=== PATIENT | male | born 1975 | race Caucasian/White ===

== ENCOUNTER 2020-09-11 14:17 | Emergency (ER) | payer OTHER, SELFPAY ==
[2020-09-11 14:26] VITALS: BP 129/77; PULSE 77; RESP 20; TEMP 36.4; O2SAT 97; BMI 28.0
--- NOTE | 2020-09-11 14:33 | ED.BACK ---
HPI - Back Pain/Injury General Chief Complaint: Back Pain/Injury Stated Complaint: back pain Time Seen by Provider: 09/11/20 14:25 Source: patient Mode of arrival: ambulatory Limitations: no limitations History of Present Illness HPI Narrative: 44-year-old male with a past medical history of chronic back pain presenting to the ED with complaints of acute on chronic lower back pain for the past few days worse today. Denies any injuries. Denies any additional complaints or concerns at this time. Reports is similar to his prior episodes of back pain. Related Data Previous Rx's Medication Instructions Recorded ibuprofen 800 mg PO Q8H PRN #14 tab 09/11/20 oxycodone-acetaminophen [Percocet] 1 tab PO Q6H PRN #10 tab 09/11/20 prednisone 40 mg PO DAILY 5 Days #10 tab 09/11/20 Allergies Allergy/AdvReac Type Severity Reaction Status Date / Time No Known Allergies Allergy Unknown NOT Unverified 07/10/20 14:59 APPLICABLE Review of Systems Review of Systems: Constitutional : No trauma, No Weight loss, No Fever, No Chills, ENT/Mouth : No Hearing loss, No Ear Pain, No Nasal Congestion, No Sinus Pain, No Hoarseness, No sore throat, No Rhinorrhea, No Swallowing Difficulty Cardiovascular : No Chest Pain, No SOB Respiratory : No Cough, No Dyspnea Gastrointestinal : No Nausea, No Vomiting, No Diarrhea, No abdominal Pain, No Hematochezia, No Melena Genitourinary : No Dysuria, No Urinary Frequency, No Hematuria, No Urinary or Bowel Incontinence/retention Musculoskeletal : + Back pain, No neck pain, No joint stiffness, No joint swelling Skin : No Skin Lesions, No rash or signs of infection Neuro : No Weakness, No radiation, No Numbness, No Paresthesias, No headache, no loss of bowel or bladder incontinence, no saddle anesthesia Denies history of IV drug usage. Yes all other systems are reviewed and are negative PMFSH Past Medical History Attestation statement: The following information was validated with the patient. Medical History No known health problems Social History Social History Advance Directives: No Advance Directives Information Provided: No Physical Exam Vital Signs: Vital Signs: Last Vital Signs Temp 97.6 F 09/11/20 14:26 Pulse 77 09/11/20 14:26 Resp 20 09/11/20 14:26 BP 129/77 09/11/20 14:26 Pulse Ox 97 09/11/20 14:26 Body Mass Index 28.0 vital signs have been reviewed as normal and appeared to be correct. Blood pressure normal. Heart rate normal. Respiration rate normal. Temperature normal. Oxygen saturation normal. Appearance: Alert. Oriented X3. No acute distress. Head: Normal external exam. Normocephalic. Atraumatic. No Escobar signs noted. No raccoon eyes noted Eyes: PERRLA. EOMI. Conjunctiva and sclera normal. Eyelids normal. ENT: EAC normal. TM's Normal. Pharynx normal. Uvula midline. Moist mucous membranes. No trismus noted. No drooling noted. No muffled voice noted. Neck: Normal inspection. Neck supple. FROM. No adenopathy. Thyroid Normal. No meningeal signs. No neck mass noted. CVS: Normal heart rate and rhythm. Heart sound normal. No murmurs noted. Pulses normal throughout. Respiratory: No respiratory distress. Painless inspiration. Breath sounds normal. No wheezes/rales/rhonchi noted. Chest nontender. No accessory muscle usage noted or decreased air movement noted. Abdomen: Soft and nontender. Bowel sounds normal in all 4 quadrants. No distention noted. No organomegaly noted. No visible injury noted. Back: No CVA tenderness. Full range of motion noted. No obvious deformities, or edema. Mild para-spinal muscular tenderness from lumbar region to coccyx. Full ROM in back and lower extremities. 5/5 strength hip extension/flexion, abduction, adduction. Mild Lumbar pain with hip flexion against resistance. Straight leg raise test negative on right; Straight leg raise test negative on left; Reflexes normal ankle and knee bilaterally; EHL motor strength normal bilaterally Skin: Skin warm and dry. Normal skin color. Normal skin turgor. No rashes/lesions/lacerations noted. Extremities: No lower extremity edema. Extremities exhibit normal range of motion. Extremities nontender. Neuro: Oriented X 3. No motor deficit. No sensory deficit. Reflexes normal. Course Course Course Narrative: Pt c likely muscular pain, but could be herniated disc. Neuro exam shows no deficits. Not c/w AAA/epidural abscess/dissection.No high risk Hx (Incont, fever, immunosupp, recent surgery/LP, coag, signif trauma, wt loss, puls mass, hx/o Ca, TB, or IVDU) to warrant MRI/CT today. Not c/w Pyelo/UTI/kidney stone/spinal fx. Not cauda equina syndrome. DC c meds and f/u. MDM - Back Pain/Injury Medical Records Attestation: I reviewed the patient's medical records. Discharge Plan Discharge Clinical Impression: Strain of lumbar region Patient Disposition: Home, Self-Care Instructions: Back Pain (ED), Lower Back Exercises (ED) Prescriptions: New ibuprofen 800 mg tablet 800 mg PO Q8H PRN (Reason: pain) Qty: 14 RF: 0 prednisone 20 mg tablet 40 mg PO DAILY 5 Days Qty: 10 RF: 0 oxycodone-acetaminophen [Percocet] 5-325 mg tablet 1 tab PO Q6H PRN (Reason: pain) Qty: 10 RF: 0 Referrals: Physician,Unknown [Primary Care Provider] - 2 days (your pcp) Stand Alone Forms: Work/School Release Print Language: Macedonian
== END 2020-09-11 14:59 | disposition home or self-care (01) ==
LOC: HO.ED 14:37
PROVIDERS: Emergency Provider Emergency Medicine
DX: S39.012A Strain of muscle, fascia and tendon of lower back, initial encounter (principal); M54.6 Pain in thoracic spine; X58.XXXA Exposure to other specified factors, initial encounter; Y93.9 Activity, unspecified; Y92.9 Unspecified place or not applicable; Y99.9 Unspecified external cause status; Z79.899 Other long term (current) drug therapy
CPT/HCPCS: 99283

== ENCOUNTER 2021-05-08 08:16 | Emergency (ER) | payer OTHER, SELFPAY ==
[2021-05-08 08:31] VITALS: BP 132/86; PULSE 84; RESP 16; TEMP 36.4; O2SAT 97; BMI 28.0
--- NOTE | 2021-05-08 09:35 | ED_ITS ---
HPI - Back Pain/Injury General Chief Complaint: Back Pain/Injury Stated Complaint: Major Back Pain Time Seen by Provider: 05/08/21 09:30 Source: patient Mode of arrival: ambulatory Limitations: no limitations History of Present Illness HPI Narrative: Patient is a 45-year-old male with no significant past medical history you presents with low back pain x4 days. 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 He states he has tried ibuprofen and heat at home with no improvement of his pain. He states the back pain starts in his low back goes down his left butt cheek and is a sharp shooting pain. He states when he extends his right leg, he can feel the pain worse in his left side. Patient denies loss of control of bladder or bowels. Denies any history of of injury but does state 8 years ago he had some back problems for which he received a cortisone shot and he has been fine ever since. Related Data Previous Rx's Medication Instructions Recorded ibuprofen 800 mg PO Q8H PRN #14 tab 09/11/20 oxycodone-acetaminophen [Percocet] 1 tab PO Q6H PRN #15 tab 09/11/20 prednisone 40 mg PO DAILY 5 Days #10 tab 09/11/20 naproxen 500 mg PO BID PRN 7 Days tab 05/08/21 prednisone 50 mg PO DAILY 4 Days #4 tab 05/08/21 Allergies Allergy/AdvReac Type Severity Reaction Status Date / Time No Known Allergies Allergy Unknown NOT Unverified 07/10/20 14:59 APPLICABLE Review of Systems Review of Systems: Yes all other systems are reviewed and are negative [facility] Past Medical History Medical History No known health problems Social History Social History Advance Directives: No Advance Directives Information Provided: No Physical Exam Vital Signs: Vital Signs: Last Vital Signs Temp 97.6 F 05/08/21 08:31 Pulse 84 05/08/21 08:31 Resp 16 05/08/21 08:31 BP 132/86 05/08/21 08:31 Pulse Ox 97 05/08/21 08:31 Body Mass Index 28.0 Const: General: cooperative, healthy appearing, comfortable and no acute distress Nutritional Appearance: average body habitus Orientation/consciousness: patient oriented x3 Eyes: General: appearance normal, both eyes and all related structures Resp: Effort & Inspection: normal respiratory effort and able to speak in complete sentences Back/Spine/Pelvis: Back: back tenderness (left lower lumbar) Cervical Spine: cervical ROM normal, No cervical muscular tenderness and No Cervical spine tenderness Thoracic/Lumbar Spine: thoraco-lumbar ROM limited, No thoraco-lumbar spasm, No thoracic spinal tenderness, No lumbar spinal tenderness and straight leg raise positive (right side (pain is on left side)) Pelvis: buttock tenderness on the left Skin: General skin exam: no rashes or lesions noted Neuro: General: patient oriented x3 Course Course Course Narrative: Will give 1st dose of steroid and naproxen in ED then discharge Discharge Plan Discharge Clinical Impression: Lumbar radiculopathy Patient Disposition: Home, Self-Care Instructions: Lumbar Radiculopathy (ED) Additional Instructions: Please take the prednisone for the next 4 days, I have sent a prescription to your pharmacy. I have also prescribed naproxen, please take this medication every 12 hours as needed for pain but do not take it for more than 7-10 days as it will irritate your stomach. Please do not take any other ibuprofen, Aleve, Motrin with this medication because it is a similar type of medication and will be bad for your kidneys. If he need extra pain control, you can add in acetaminophen or Tylenol. I would also use ice to reduce the swelling. If your pain continues, please follow-up with your primary care doctor. If you lose control of her bladder or bowels, please return to the emergency department. Prescriptions: New naproxen 500 mg tablet 500 mg PO BID PRN (Reason: pain) 7 Days RF: 0 prednisone 50 mg tablet 50 mg PO DAILY 4 Days Qty: 4 RF: 0 No Action ibuprofen 800 mg tablet 800 mg PO Q8H PRN (Reason: pain) Qty: 14 RF: 0 prednisone 20 mg tablet 40 mg PO DAILY 5 Days Qty: 10 RF: 0 oxycodone-acetaminophen [Percocet] 5-325 mg tablet 1 tab PO Q6H PRN (Reason: pain) Qty: 15 RF: 0
[2021-05-08] MEDS: predniSONE 10 MG TABLET 50 MG PO (09:53)
[2021-05-08] MEDS: NaPROXEN 500 MG TABLET PO (09:53)
== END 2021-05-08 10:08 | disposition home or self-care (01) ==
PROVIDERS: Emergency Provider Emergency Medicine
DX: M54.16 Radiculopathy, lumbar region (principal)
CPT/HCPCS: 99283

== ENCOUNTER 2021-10-14 15:59 | Emergency (ER) | payer OTHER, SELFPAY | END 2021-10-14 20:40 | disposition left against medical advice (07) | PROVIDERS: Emergency Provider Emergency Medicine | DX: M54.50 Low back pain, unspecified (principal) ==

== ENCOUNTER 2021-10-15 08:02 | Emergency (ER) | payer OTHER, SELFPAY ==
[2021-10-15 08:05] VITALS: BP 141/103; PULSE 80; RESP 19; TEMP 36.6; O2SAT 98; BMI 28.0
--- NOTE | 2021-10-15 08:32 | ED_ITS ---
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 Pain is worse with movement when walking. It is improved with rest and laying flat. He denies any lower extremity weakness, numbness, tingling, urinary incontinence. No fevers. He reports this is similar to his previous back pain where he ?over did it? and usually gets better with medication and time. MD elicited complaint: back pain Pertinent past history: prior back pain Onset (ago): day(s) (3) Timing: constant Severity: moderate Quality: aching and spasming Location: right lower back and left lower back Radiation: right upper leg Exacerbating factors: movement and walking Relieving factors: supine Context: bending Associated symptoms: denies other symptoms Treatments prior to arrival: NSAIDS Work related injury: Yes Related Data Previous Rx's Medication Instructions Recorded ibuprofen 800 mg tablet 800 mg PO Q8H PRN #14 tab 09/11/20 oxycodone-acetaminophen 5 mg-325 1 tab PO Q6H PRN #15 tab 09/11/20 mg tablet (Percocet) prednisone 20 mg tablet 40 mg PO DAILY 5 Days #10 tab 09/11/20 naproxen 500 mg tablet 500 mg PO BID PRN 7 Days tab 05/08/21 prednisone 50 mg tablet 50 mg PO DAILY 4 Days #4 tab 05/08/21 cyclobenzaprine 10 mg tablet 10 mg PO TID PRN #10 tab 10/15/21 hydrocodone 5 mg-acetaminophen 325 1 tab PO Q8H PRN #6 tab 10/15/21 mg tablet ibuprofen 800 mg tablet 800 mg PO Q8H PRN #14 tab 10/15/21 Allergies Allergy/AdvReac Type Severity Reaction Status Date / Time No Known Allergies Allergy Unknown NOT Unverified 07/10/20 14:59 APPLICABLE Review of Systems Review of Systems: Constitutional: No Fever, No Chills Cardiovascular: No Chest Pain, No SOB Gastrointestinal: No Nausea, No Vomiting, No abdominal Pain Genitourinary: No Dysuria, No Urinary Frequency, No Hematuria, No incontinence Musculoskeletal: + joint pain, + Myalgias Skin: No Skin Lesions, No rash Neuro: No Weakness, No Numbness Heme/Lymph: No Bruising, No Lymphadenopathy PMFSH Past Medical History Medical History No known health problems Social History Social History Advance Directives: No Advance Directives Information Provided: No Physical Exam Vital Signs: Vital Signs: Last Vital Signs Temp 98 F 10/15/21 08:05 Pulse 80 10/15/21 08:05 Resp 19 10/15/21 08:05 BP 141/103 H 10/15/21 08:05 Pulse Ox 98 10/15/21 08:05 BMI result Body Mass Index 28.0 Appearance: Alert. Oriented X3. No acute distress. HEENT: normal inspection CVS: Normal heart rate and rhythm. Pulses normal. Respiratory: No respiratory distress. Skin: Skin warm and dry. Normal skin color. Normal skin turgor. No rashes. Back: normal inspection, tenderness to bilateral upper lumbar are tender with palpable spasm, +straight leg raise on the right Extremities: atraumatic, normal inspection, normal ROM. right lateral hip with mild tenderness, no deformity Neuro: Oriented X 3. No motor deficit. No sensory deficit. Ambulates with steady gait Course Course Course Narrative: 6-year-old male with history of intermittent low back pain due to his occupation presents with low back pain that started after he was bent over on the roof for several hours yesterday. He also spent several hours in the car driving home from the job site in [place]. Has muscle spasticity in tenderness in the right lower back and right hip. His pain is most likely due to muscle strain and spasm. Will treat accordingly with muscle relaxer, NSAID, Lidoderm patches and short course of oxycodone as needed for severe pain. Patient encourage follow-up with primary care doctor for further management and potential physical therapy. He is stable for discharge with outpatient follow- up and supportive care. Discharge Plan Discharge Clinical Impression: Strain of lumbar region Qualifiers: Encounter type: initial encounter Qualified Code(s): S39.012A - Strain of muscle, fascia and tendon of lower back, initial encounter Patient Disposition: Home, Self-Care Instructions: Low Back Strain (ED), Lower Back Exercises (ED) Additional Instructions: Your back pain is most likely muscular in nature. No bending, lifting or twisting. Use ice several times per day for 20 minutes at a time for the next 48 hours and then change to heat. Take medications as prescribed to help with pain and discomfort. Follow up with your Primary Care Doctor this week. If your pain worsens, if you develop new numbness, tingling, weakness, loss of function or incontinence call 911 or come back to the ER right away for evaluation. Prescriptions: New hydrocodone-acetaminophen 5-325 mg tablet 1 tab PO Q8H PRN (Reason: pain) Qty: 6 RF: 0 cyclobenzaprine 10 mg tablet 10 mg PO TID PRN (Reason: muscle spasm) Qty: 10 RF: 0 ibuprofen 800 mg tablet 800 mg PO Q8H PRN (Reason: pain) Qty: 14 RF: 0 No Action naproxen 500 mg tablet 500 mg PO BID PRN (Reason: pain) 7 Days RF: 0 prednisone 50 mg tablet 50 mg PO DAILY 4 Days Qty: 4 RF: 0 ibuprofen 800 mg tablet 800 mg PO Q8H PRN (Reason: pain) Qty: 14 RF: 0 prednisone 20 mg tablet 40 mg PO DAILY 5 Days Qty: 10 RF: 0 oxycodone-acetaminophen [Percocet] 5-325 mg tablet 1 tab PO Q6H PRN (Reason: pain) Qty: 15 RF: 0 Stand Alone Forms: Work/School Release Interventions: ED Discharge Assessment Last Done: 10/15/21 09:13 Discharge Date/Time: 10/15/21 09:14
[2021-10-15] MEDS: Ketorolac Tromethamine 30 MG/ML VIAL IM (09:10)
[2021-10-15] MEDS: HYDROcodone Bit/Acetam 5/325 TABLET 1 TAB PO (09:10)
[2021-10-15] MEDS: Lidocaine 4 % Patch ADH..PATCH 1 PATCH TRANSDERMA (09:11)
== END 2021-10-15 09:14 | disposition home or self-care (01) ==
PROVIDERS: Emergency Provider Emergency Medicine
DX: S39.012A Strain of muscle, fascia and tendon of lower back, initial encounter (principal); X50.1XXA Overexertion from prolonged static or awkward postures, initial encounter; Y93.9 Activity, unspecified; Y92.9 Unspecified place or not applicable; Y99.9 Unspecified external cause status
CPT/HCPCS: 96372; 99283; 99284; J1885

== ENCOUNTER 2023-04-11 08:16 | Emergency (ER) | payer BC, SELFPAY ==
[2023-04-11 08:18] VITALS: BP 126/90; PULSE 71; RESP 18; TEMP 35.9; O2SAT 97; BMI 28.5
--- NOTE | 2023-04-11 09:23 | ED.GENADULT ---
HPI - General Adult General Chief complaint: General Medical Stated complaint: not feeling well Time Seen by Provider: 04/11/23 08:47 Source: patient Mode of arrival: ambulatory Limitations: no limitations History of Present Illness HPI narrative: 47-yo male presents to the ER for upper right molar pain. He states that the right molar broke a few months ago. He reports last night he was eating potato chips when he hurt his gum. He reports swelling in his right cheek and lymph node. Denies fevers, chills, chest pain or shortness of breath. Does not have regular dental care and does not have a dentist currently. MD complaint: Upper dental pain Onset (ago): day(s) Location: face (right molar) Severity: moderate Quality: aching and sharp Pain Consistency: constant Relieving factors: none Exacerbating factors: none Associated symptoms: denies other symptoms Treatments prior to arrival: none Related Data Previous Rx's Medication Instructions Recorded ibuprofen 800 mg tablet 800 mg PO Q8H PRN pain #14 tabs 09/11/20 oxycodone-acetaminophen 5 mg-325 1 tab PO Q6H PRN pain #15 tabs 20 mg tablet (Percocet) prednisone 20 mg tablet 40 mg PO DAILY rash 5 days #10 tabs 09/11/20 naproxen 500 mg tablet 500 mg PO BID PRN pain 7 days 05/08/21 prednisone 50 mg tablet 50 mg PO DAILY 4 days #4 tabs 05/08/21 cyclobenzaprine 10 mg tablet 10 mg PO TID PRN muscle spasm #10 10/15/21 tabs hydrocodone 5 mg-acetaminophen 325 1 tab PO Q8H PRN pain #6 tabs 10/15/21 mg tablet ibuprofen 800 mg tablet 800 mg PO Q8H PRN pain #14 tabs 10/15/21 amoxicillin 875 mg-potassium 1 tab PO BID #20 tabs 04/11/23 clavulanate 125 mg tablet ibuprofen 600 mg tablet 600 mg PO Q8H PRN pain #30 tabs 04/11/23 tramadol 50 mg tablet 50 mg PO Q8H PRN severe pain 04/11/23 (scale score 7-10) #10 tabs Allergies Allergy/AdvReac Type Severity Reaction Status Date / Time No Known Allergies Allergy Unknown NOT Verified 04/11/23 08:23 APPLICABLE Review of Systems Review of Systems: Yes all other systems are reviewed and are negative [facility] Past Medical History Medical History No known health problems Social History Social History Advance Directives: No Advance Directives Information Provided: No Physical Exam ED Vital Signs: Vital Signs - 24 hr 04/11/23 08:18 Temperature 96.7 F L Pulse Rate 71 Respiratory Rate 18 Blood Pressure 126/90 H Pulse Oximetry 97 Oxygen Delivery Method Room Air BMI result Body Mass Index 28.5 Appearance: Alert. Oriented X3. No acute distress. HEENT: normal external inspection aside fro mild swelling of right maxially area. Poor dentition, right upper molar fractured with erythema on the anterior/posterior gums, tooth was mobile, exposed pulp. No trismis CVS: Normal heart rate and rhythm. Pulses normal. Respiratory: No respiratory distress. Abdomen: soft, nondistended abdomen with normoactive bowel sounds Skin: Skin warm and dry. Normal skin color. Normal skin turgor. No rashes. Extremities: full ROM Neuro: Oriented X 3. No motor deficit. No sensory deficit. Medical Decision Making Medical Decision Making MDM Narrative: 47-yo male presents to the ER for upper right molar pain. Physical exam showed poor dentition, with a fractured right molar, with moderate erythema and fluctuance on the anterior gum. Diagnosis is most consistent with early develop of a dental abscess given his physical exam and symptoms. No need for incision and drainage at this time. Plan to prescribe augmentin for antimicrobial coverage, NSAID and tramadol for pain management. Must follow-up with a dentist as soon as possible. Differential Diagnosis Differential Diagnoses: The differential diagnosis associated with the presentation includes dental abscess, periodontal abscess, Sialadenitis, Tests considered The following testing was considered but not selected: Considered CT and lab work but deferred at this time as he had no trismis or systemic symptoms. Prescription Management I considered prescription management with: Pain Medication and Antibiotic Core Measures AMI core measures followed: No Discharge Plan Discharge Clinical Impression: Dental abscess Patient Disposition: Home, Self-Care Instructions: Dental Abscess (ED) Additional Instructions: follow up with a dentist MALIK Take NSAIDs as needed for pain Take tramadol as neede for severe pain Take antibotics as prescibed, take the full dose do not skip Prescriptions: New amoxicillin-pot clavulanate 875-125 mg tablet 1 tab PO BID Qty: 20 0RF ibuprofen 600 mg tablet 600 mg PO Q8H PRN (Reason: pain) Qty: 30 0RF tramadol 50 mg tablet 50 mg PO Q8H PRN (Reason: severe pain (scale score 7-10)) Qty: 10 0RF No Action naproxen 500 mg tablet 500 mg PO BID PRN (Reason: pain) 7 Days 0RF prednisone 50 mg tablet 50 mg PO DAILY 4 Days Qty: 4 0RF ibuprofen 800 mg tablet 800 mg PO Q8H PRN (Reason: pain) Qty: 14 0RF prednisone 20 mg tablet 40 mg PO DAILY 5 Days Qty: 10 0RF oxycodone-acetaminophen [Percocet] 5-325 mg tablet 1 tab PO Q6H PRN (Reason: pain) Qty: 15 0RF hydrocodone-acetaminophen 5-325 mg tablet 1 tab PO Q8H PRN (Reason: pain) Qty: 6 0RF cyclobenzaprine 10 mg tablet 10 mg PO TID PRN (Reason: muscle spasm) Qty: 10 0RF ibuprofen 800 mg tablet 800 mg PO Q8H PRN (Reason: pain) Qty: 14 0RF
== END 2023-04-11 09:57 | disposition home or self-care (01) ==
PROVIDERS: Emergency Provider Student in an Organized Health Care Education/Training Program
DX: K04.7 Periapical abscess without sinus (principal); Z79.899 Other long term (current) drug therapy
CPT/HCPCS: 99283; 99284

== ENCOUNTER 2023-10-06 13:47 | Emergency (ER) | payer OTHER, SELFPAY ==
--- NOTE | ~2023-10-06 | XR_ITS ---
EXAMINATION: XR tibia fibula LT 2V, XR ankle LT min 3V, XR calcaneus LT min 2V, XR foot LT min 3V CLINICAL INFORMATION: Reason for Exam fall, 10' pain and swelling COMPARISON: Radiographs 07/01/2016 TECHNIQUE: Two views of the tibia and fibula, 1 view of the calcaneus, 3 views of the foot and 3 views of the ankle, FINDINGS: The tibia and fibula are intact. Mild osteoarthritis of the ankle with small osteophytes. Well-corticated fragment adjacent to the medial and lateral malleoli may reflect sequelae of remote avulsion fractures. Comminuted and displaced intra-articular fracture involving the mid body of the calcaneus superimposed on a chronic appearing deformity of the posterior calcaneus. There is diffuse soft tissue swelling about the foot and ankle. No tibiotalar joint effusion. XR/XR foot LT min 3V IMPRESSION: 1. Comminuted and displaced intra-articular fracture involving the mid body of the calcaneus superimposed on a chronic appearing deformity of the posterior calcaneus. There is diffuse soft tissue swelling about the foot and ankle. 2. Well-corticated fragment adjacent to the medial and lateral malleoli may reflect sequelae of remote avulsion fractures. 3. Mild osteoarthritis of the ankle.
--- NOTE | ~2023-10-06 | XR_ITS ---
EXAMINATION: XR tibia fibula LT 2V, XR ankle LT min 3V, XR calcaneus LT min 2V, XR foot LT min 3V CLINICAL INFORMATION: Reason for Exam fall, 10' pain and swelling COMPARISON: Radiographs 07/01/2016 TECHNIQUE: Two views of the tibia and fibula, 1 view of the calcaneus, 3 views of the foot and 3 views of the ankle, FINDINGS: The tibia and fibula are intact. Mild osteoarthritis of the ankle with small osteophytes. Well-corticated fragment adjacent to the medial and lateral malleoli may reflect sequelae of remote avulsion fractures. Comminuted and displaced intra-articular fracture involving the mid body of the calcaneus superimposed on a chronic appearing deformity of the posterior calcaneus. There is diffuse soft tissue swelling about the foot and ankle. No tibiotalar joint effusion. XR/XR calcaneus LT min 2V IMPRESSION: 1. Comminuted and displaced intra-articular fracture involving the mid body of the calcaneus superimposed on a chronic appearing deformity of the posterior calcaneus. There is diffuse soft tissue swelling about the foot and ankle. 2. Well-corticated fragment adjacent to the medial and lateral malleoli may reflect sequelae of remote avulsion fractures. 3. Mild osteoarthritis of the ankle.
--- NOTE | ~2023-10-06 | XR_ITS ---
EXAMINATION: XR tibia fibula LT 2V, XR ankle LT min 3V, XR calcaneus LT min 2V, XR foot LT min 3V CLINICAL INFORMATION: Reason for Exam fall, 10' pain and swelling COMPARISON: Radiographs 07/01/2016 TECHNIQUE: Two views of the tibia and fibula, 1 view of the calcaneus, 3 views of the foot and 3 views of the ankle, FINDINGS: The tibia and fibula are intact. Mild osteoarthritis of the ankle with small osteophytes. Well-corticated fragment adjacent to the medial and lateral malleoli may reflect sequelae of remote avulsion fractures. Comminuted and displaced intra-articular fracture involving the mid body of the calcaneus superimposed on a chronic appearing deformity of the posterior calcaneus. There is diffuse soft tissue swelling about the foot and ankle. No tibiotalar joint effusion. XR/XR ankle LT min 3V IMPRESSION: 1. Comminuted and displaced intra-articular fracture involving the mid body of the calcaneus superimposed on a chronic appearing deformity of the posterior calcaneus. There is diffuse soft tissue swelling about the foot and ankle. 2. Well-corticated fragment adjacent to the medial and lateral malleoli may reflect sequelae of remote avulsion fractures. 3. Mild osteoarthritis of the ankle.
--- NOTE | ~2023-10-06 | XR_ITS ---
EXAMINATION: XR tibia fibula LT 2V, XR ankle LT min 3V, XR calcaneus LT min 2V, XR foot LT min 3V CLINICAL INFORMATION: Reason for Exam fall, 10' pain and swelling COMPARISON: Radiographs 07/01/2016 TECHNIQUE: Two views of the tibia and fibula, 1 view of the calcaneus, 3 views of the foot and 3 views of the ankle, FINDINGS: The tibia and fibula are intact. Mild osteoarthritis of the ankle with small osteophytes. Well-corticated fragment adjacent to the medial and lateral malleoli may reflect sequelae of remote avulsion fractures. Comminuted and displaced intra-articular fracture involving the mid body of the calcaneus superimposed on a chronic appearing deformity of the posterior calcaneus. There is diffuse soft tissue swelling about the foot and ankle. No tibiotalar joint effusion. XR/XR tibia fibula LT 2V IMPRESSION: 1. Comminuted and displaced intra-articular fracture involving the mid body of the calcaneus superimposed on a chronic appearing deformity of the posterior calcaneus. There is diffuse soft tissue swelling about the foot and ankle. 2. Well-corticated fragment adjacent to the medial and lateral malleoli may reflect sequelae of remote avulsion fractures. 3. Mild osteoarthritis of the ankle.
--- NOTE | 2023-10-06 13:51 | ED_ITS ---
HPI - General Adult General Chief complaint: Extremity Problem Stated complaint: fell 10 ft inj l ankle at work Related Data Previous Rx's Medication Instructions Recorded ibuprofen 800 mg tablet 800 mg PO Q8H PRN pain #14 tabs 09/11/20 oxycodone-acetaminophen 5 mg-325 1 tab PO Q6H PRN pain #15 tabs 09/11/20 mg tablet (Percocet) prednisone 20 mg tablet 40 mg (2 x 20 mg) PO DAILY rash 5 09/11/20 days #10 tabs naproxen 500 mg tablet 500 mg PO BID PRN pain 7 days 05/08/21 prednisone 50 mg tablet 50 mg PO DAILY 4 days #4 tabs 05/08/21 cyclobenzaprine 10 mg tablet 10 mg PO TID PRN muscle spasm #10 10/15/21 tabs hydrocodone 5 mg-acetaminophen 325 1 tab PO Q8H PRN pain #6 tabs 10/15/21 mg tablet ibuprofen 800 mg tablet 800 mg PO Q8H PRN pain #14 tabs 10/15/21 amoxicillin 875 mg-potassium 1 tab PO BID #20 tabs 04/11/23 clavulanate 125 mg tablet ibuprofen 600 mg tablet 600 mg PO Q8H PRN pain #30 tabs 04/11/23 tramadol 50 mg tablet 50 mg PO Q8H PRN severe pain 04/11/23 (scale score 7-10) #10 tabs Allergies Allergy/AdvReac Type Severity Reaction Status Date / Time No Known Allergies Allergy Unknown NOT Verified 04/11/23 08:23 APPLICABLE [facility] Past Medical History Medical History No known health problems Social History Social History Substance Use Type: Marijuana Physical Exam ED Vital Signs: Vital Signs - 24 hr 10/06/23 13:52 Temperature 97.4 F Pulse Rate 83 Respiratory Rate 20 Blood Pressure 139/87 Pulse Oximetry 98 Oxygen Delivery Method Room Air BMI result Body Mass Index 26.6 Course Course Course Narrative: This is a rapid medical exam: Additional HPI, ROS, PE not included below will be deferred to primary provider. Patient is a 48-year-old male presenting to the emergency department with complaint of left ankle pain after falling approximately 10' off a ladder while at work. Complains of pain to the back of his heel radiating up lower leg. Took 800mg ibuprofen with little relief. Complains of numbness/tingling to foot. Denies head strike or loss of consciousness. Plan: x-rays Patient no answer from waiting room at 16:15. Called patient at phone number in chart. He states that he needed to go home for pain medication, and states that he just called an ambulance to bring him back to the ED. Patient advised that he should return to the ED to complete treatment. Discharge Plan Discharge Clinical Impression: Ankle pain, left Patient Disposition: Left W/O Completing Treatment Prescriptions: No Action naproxen 500 mg tablet 500 mg PO BID PRN (Reason: pain) 7 Days 0RF prednisone 50 mg tablet 50 mg PO DAILY 4 Days Qty: 4 0RF ibuprofen 800 mg tablet 800 mg PO Q8H PRN (Reason: pain) Qty: 14 0RF prednisone 20 mg tablet 40 mg PO DAILY 5 Days Qty: 10 0RF oxycodone-acetaminophen [Percocet] 5-325 mg tablet 1 tab PO Q6H PRN (Reason: pain) Qty: 15 0RF hydrocodone-acetaminophen 5-325 mg tablet 1 tab PO Q8H PRN (Reason: pain) Qty: 6 0RF cyclobenzaprine 10 mg tablet 10 mg PO TID PRN (Reason: muscle spasm) Qty: 10 0RF ibuprofen 800 mg tablet 800 mg PO Q8H PRN (Reason: pain) Qty: 14 0RF amoxicillin-pot clavulanate 875-125 mg tablet 1 tab PO BID Qty: 20 0RF ibuprofen 600 mg tablet 600 mg PO Q8H PRN (Reason: pain) Qty: 30 0RF tramadol 50 mg tablet 50 mg PO Q8H PRN (Reason: severe pain (scale score 7-10)) Qty: 10 0RF
[2023-10-06 13:52] VITALS: BP 139/87; PULSE 83; RESP 20; TEMP 36.3; O2SAT 98; BMI 26.6
== END 2023-10-06 17:15 | disposition left against medical advice (07) ==
PROVIDERS: Emergency Provider Emergency Medicine
DX: S99.912A Unspecified injury of left ankle, initial encounter (principal); M79.605 Pain in left leg; M79.672 Pain in left foot; W17.89XA Other fall from one level to another, initial encounter; Y93.9 Activity, unspecified; Y92.9 Unspecified place or not applicable; Y99.0 Civilian activity done for income or pay; Z79.899 Other long term (current) drug therapy
CPT/HCPCS: 73590; 73610; 73630; 73650; 99281; 99283; 99284

== ENCOUNTER 2023-10-06 17:34 | Emergency (ER) | payer OTHER, SELFPAY ==
--- NOTE | ~2023-10-06 | CT_ITS ---
EXAMINATION: CT HEAD WITHOUT CONTRAST CT CERVICAL SPINE WITHOUT CONTRAST CLINICAL INFORMATION: Trauma. Pain. COMPARISON: None available. TECHNIQUE: Contiguous axial imaging was performed from the skull base to vertex without intravenous administration of contrast. This CT examination was performed using dose optimization techniques as appropriate, variously including the following: *Automated exposure control *Adjustment of mA and/or kV according to patient size (this includes techniques or standardized protocols for targeted exams where dose is matched to indication/reason for exam; i.e. extremities or head) *Use of iterative reconstruction technique DLP: 1114. mGy-cm FINDINGS: The lateral, third and fourth ventricles are normally outlined. The cortical sulci and basal cisterns are normally out well. There is no acute territorial defect, hemorrhage or midline shift. The extra-axial spaces are unremarkable. Calvarium: Intact. Maxillofacial sinuses and mastoids: Clear as visualized. Cervical spine: There is straightening of the cervical spine curvature. There is diffuse mild cervical disc degenerative change with loss of discs minimal loss of disc space, mild endplate change and posterior osteophytes associated with minimal facet osteoarthritic hypertrophic change with multilevel mild spinal canal and multilevel mild neuroforaminal narrowing. There is no fracture. Soft tissues are unremarkable. The upper lung giles are clear. CT/CT cervical spine wo IV con IMPRESSION: No acute intracranial pathology. Mild diffuse cervical disc degenerative change. No fracture.
--- NOTE | ~2023-10-06 | CT_ITS ---
EXAMINATION: CT chest, abdomen pelvis with IV contrast. CLINICAL INDICATION: Trauma. TECHNIQUE:: 5 mm thin axial and reformatted 3 minutes thin sagittal coronal images of chest, abdomen pelvis were obtained following IV 85 metal Omnipaque [id number]. [address] CT examination was performed using dose optimization technique as appropriate, variously including the following: Automated exposure control Adjustment of MA and/or KV according to patient size(this includes techniques or standardized protocols for targeted exams where dose is matched to indication/reason for exam; extremities or head. Use of iterative reconstruction techniques. FINDINGS: Chest: LUNGS: There is diffuse emphysematous changes of lungs with small bilateral apical parenchymal cyst and minimal scarring. There is no acute consolidation, contusion or mass. Mediastinum: The heart size and great vessels are normal caliber. The central trachea and the bronchi are widely patent. The thyroid lobes are symmetrical and normal. No visible acute fracture, dislocation or subluxation seen. There are small shotty lymph nodes. No pericardial effusion seen. There is no coronary artery calcification. Pleura: There is no pleural effusion or thickening. Axilla: No abnormal size axillary lymph nodes seen. The chest wall is unremarkable. Upper abdomen: Visualized liver, spleen, pancreas and bilateral adrenal glands unremarkable. There are no radiopaque gallstone seen. Osseous structures: No aggressive lytic or sclerotic process seen. There is mild ventral spondylosis lower dorsal spine. Abdomen and pelvis: Liver, ducts and gallbladder: The liver is normal size, contour and density. No focal lesion or intrahepatic ductal dilatation seen. No radiopaque gallstones or wall thickening. Spleen: Unremarkable. Pancreas: Unremarkable. Adrenal glands: Unremarkable. Kidneys and ureter: Both kidneys are normal size, shape and position. No radiopaque renal calculi or hydronephrosis seen. There is a 5 mm hypodensity midpole left kidney likely small cyst. There is no perinephric stranding. Lymphovascular structures: The abdominal aorta is normal caliber. No retrobulbar lymph nodes or mass seen. GI tract: There is scattered stool, gas and diverticula seen in colon without significant distention. The small bowel loops are normal caliber. Appendix is normal caliber No free air or free fluid is seen. Abdominal wall: Unremarkable. Pelvis: The bladder is unremarkable. The prostate gland is normal size. No abnormal size inguinal or pelvic lymph nodes seen. Osseous structures: No aggressive lytic or sclerotic process seen. There is mild ventral spondylosis lower dorsal and lumbar spine. CT/CT abdomen pelvis w IV con IMPRESSION: No acute process seen in the chest, abdomen pelvis. No visible acute fracture or bony abnormality seen involving thoracic cage or lumbosacral spine. The pelvic bones are unremarkable as well.
--- NOTE | ~2023-10-06 | CT_ITS ---
EXAMINATION: CT left ankle. HISTORY: Calcaneal fracture status post fall. COMPARISON: Left ankle x-ray 10/06/2023 at 2:45 PM. TECHNIQUE: 2 mm thin axial and reformatted 2 mm thin sagittal and coronal images left ankle were obtained. DLP 149.. This CT examination was performed using dose optimization technique as appropriate, variously including the following: Automated exposure control Adjustment of MA and/or KV according to patient size(this includes techniques or standardized protocols for targeted exams where dose is matched to indication/reason for exam; extremities or head. Use of iterative reconstruction techniques. FINDINGS: There is comminuted burst fracture left calcaneus into multiple fragments. Overall the fragments are in close association maintaining its position. The subtalar joint is disrupted posteriorly but maintained anteriorly. The ankle mortise is normal. There are small well-corticated bony fragments adjacent to tip of medial and lateral malleoli likely old fractures. The talus is intact. Visualized tarsal bones are normal. The metatarsals are normal as well. There is no dislocation. CT/CT ankle LT wo IV con IMPRESSION: Comminuted burst fracture of left calcaneus. No dislocation seen. Old bone fragments tip of medial and lateral malleoli likely old injury. Diffuse left ankle soft tissue swelling.
--- NOTE | ~2023-10-06 | CT_ITS ---
EXAMINATION: CT HEAD WITHOUT CONTRAST CT CERVICAL SPINE WITHOUT CONTRAST CLINICAL INFORMATION: Trauma. Pain. COMPARISON: None available. TECHNIQUE: Contiguous axial imaging was performed from the skull base to vertex without intravenous administration of contrast. This CT examination was performed using dose optimization techniques as appropriate, variously including the following: *Automated exposure control *Adjustment of mA and/or kV according to patient size (this includes techniques or standardized protocols for targeted exams where dose is matched to indication/reason for exam; i.e. extremities or head) *Use of iterative reconstruction technique DLP: 1114. mGy-cm FINDINGS: The lateral, third and fourth ventricles are normally outlined. The cortical sulci and basal cisterns are normally out well. There is no acute territorial defect, hemorrhage or midline shift. The extra-axial spaces are unremarkable. Calvarium: Intact. Maxillofacial sinuses and mastoids: Clear as visualized. Cervical spine: There is straightening of the cervical spine curvature. There is diffuse mild cervical disc degenerative change with loss of discs minimal loss of disc space, mild endplate change and posterior osteophytes associated with minimal facet osteoarthritic hypertrophic change with multilevel mild spinal canal and multilevel mild neuroforaminal narrowing. There is no fracture. Soft tissues are unremarkable. The upper lung giles are clear. CT/CT head/brain wo IV con IMPRESSION: No acute intracranial pathology. Mild diffuse cervical disc degenerative change. No fracture.
[2023-10-06 17:41] VITALS: BP 164/98; PULSE 78; O2SAT 99
[2023-10-06 18:06] VITALS: BP 142/76; PULSE 83; RESP 30; TEMP 37; O2SAT 98; BMI 26.6
[2023-10-06] MEDS: ondansetron HCL 4 MG/2 ML VIAL IVPUSH (18:20)
[2023-10-06] MEDS: Morphine Sulfate 4 MG/ML CARTRIDGE IVPUSH (18:20)
[2023-10-06 18:30] LABS: MANUAL DIFF FLAG NO
[2023-10-06 18:31] LABS: Basophils Percent Auto 0.1 % (0-2); Eosinophils Percent Auto 0.1 % (0-4); Hematocrit 41.2 % (42.0-52.0); Imm Gran Abs Auto 0.08 X10*3/uL (0.00-0.03); Imm Gran Pct Auto 0.5 % (0.0-0.4); Lymphocytes Absolute Auto 1.4 X10*3/uL (1.2-4.9); Lymphocytes Percent Auto 8.2 % (20-40); Mean Corpuscular Hemoglobin 31.1 pg (27.0-33.0); Mean Corpuscular Volume 91.6 fL (80.0-98.0); Mean Platelet Volume 9.4 fL (9.4-12.4); Monocytes Absolute Auto 1.1 X10*3/uL (0.1-1.2); Monocytes Percent Auto 6.4 % (2-11); Neutrophils Absolute Auto 14.1 x10*3/uL (2.0-8.3); Neutrophils Percent Auto 84.7 % (45-73); Platelet Count 296 X10*3/uL (160-400); Red Cell Distribution Width 11.9 % (11.0-16.0); White Blood Count 16.6 X10*3/uL (4.8-10.8)
[2023-10-06] MEDS: HYDROmorphone HCl 2 MG/ML VIAL IVPUSH (18:57)
[2023-10-06 19:01] LABS: Alanine Aminotransferase 20 U/L (0-40); Albumin Level 4.4 g/dL (3.5-5.0); Alkaline Phosphatase 70 U/L (39-117); Anion Gap 17 (12-20); Aspartate Amino Transferase 22 U/L (5-37); Bilirubin Total 0.4 mg/dL (0.0-1.0); Blood Urea Nitrogen 16 mg/dL (9-16); Calcium 9.7 mg/dL (8.4-10.2); Carbon Dioxide 24 mmol/L (22-29); Chloride 100 mmol/L (96-108); Creatinine Clr Calc Pharmacy 105.1; Estimated Glomerular Filt Rate > 60; Glucose Random 101 mg/dL (60-115); Potassium 3.9 mmol/L (3.3-5.1); Sodium 137 mmol/L (135-145); Total Protein 7.7 g/dL (6.5-8.0)
--- NOTE | 2023-10-06 19:03 | ED_ITS ---
HPI - General Adult General Chief complaint: Fall Stated complaint: broken ankle Time Seen by Provider: 10/06/23 17:37 Source: patient, RN notes reviewed and old records reviewed Mode of arrival: ambulatory Limitations: no limitations History of Present Illness HPI narrative: 48-year-old male presents for evaluation after being called to return to the ER He presented to the ER a few hours ago after a fall from a ladder Patient reports that he fell from approximately 10 ft off the ground He states that he was on the ladder and was slipping off He therefore jumped backwards and landed on his feet He did not fall to the ground Immediately have pain to the left foot and ankle He had x-rays done a few hours ago but left while still in the waiting room He just returned by ambulance His only complaint is pain to his left heel which is 10/10 He did not lose consciousness. This injury happened around 10:30 this morning He states that he had to have a friend drive him an hour and a half back to the area before he waited in the waiting room for a few hours Related Data Previous Rx's Medication Instructions Recorded ibuprofen 800 mg tablet 800 mg PO Q8H PRN pain #14 tabs 09/11/20 oxycodone-acetaminophen 5 mg-325 1 tab PO Q6H PRN pain #15 tabs 09/11/20 mg tablet (Percocet) prednisone 20 mg tablet 40 mg (2 x 20 mg) PO DAILY rash 5 09/11/20 days #10 tabs naproxen 500 mg tablet 500 mg PO BID PRN pain 7 days 05/08/21 prednisone 50 mg tablet 50 mg PO DAILY 4 days #4 tabs 05/08/21 cyclobenzaprine 10 mg tablet 10 mg PO TID PRN muscle spasm #10 10/15/21 tabs hydrocodone 5 mg-acetaminophen 325 1 tab PO Q8H PRN pain #6 tabs 10/15/21 mg tablet ibuprofen 800 mg tablet 800 mg PO Q8H PRN pain #14 tabs 10/15/21 amoxicillin 875 mg-potassium 1 tab PO BID #20 tabs 04/11/23 clavulanate 125 mg tablet ibuprofen 600 mg tablet 600 mg PO Q8H PRN pain #30 tabs 04/11/23 tramadol 50 mg tablet 50 mg PO Q8H PRN severe pain 04/11/23 (scale score 7-10) #10 tabs morphine 15 mg immediate release 15 mg PO Q4-6H PRN severe pain 10/06/23 tablet (scale score 7-10) #20 tabs Allergies Allergy/AdvReac Type Severity Reaction Status Date / Time No Known Allergies Allergy Unknown NOT Verified 04/11/23 08:23 APPLICABLE Review of Systems 2 Constitutional: Constitutional: Denies chills, Denies fever(s) and Denies headache(s) ENT: Denies headache(s) Cardiovascular: Cardiovascular: Denies chest pain and Denies dyspnea Respiratory: Respiratory: Denies cough and Denies dyspnea Gastrointestinal: Gastrointestinal: Denies abdominal pain, Denies nausea and Denies vomiting Musculoskeletal: Musculoskeletal: Denies back pain Comments: Severe pain in the left foot Neurologic: Denies headache(s) PMFSH Past Medical History Medical History No known health problems Social History Social History Smoked in Last 30 Days: Yes Use of substances other than those prescribed or required for medical reasons: Yes Substance Use Type: Marijuana Advance Directives: No Advance Directives Information Provided: No Physical Exam ED Vital Signs: Vital Signs - 24 hr 10/06/23 18:06 Temperature 98.6 F Pulse Rate 83 Respiratory Rate 30 H Blood Pressure 142/76 H Pulse Oximetry 98 Oxygen Delivery Method Room Air BMI result Body Mass Index 26.6 Const General: healthy appearing, alert, awake and in distress (Nontoxic appearing, the patient is quite uncomfortable due to left foot darío) severe; No comfortable Nutritional Appearance: well nourished Orientation/consciousness: patient oriented x3 HENMT Head: Yes normocephalic and Yes atraumatic Eyes Eyelids: Yes eyelids normal Conjunctivae: conjunctivae normal Sclerae: sclerae normal Corneas: corneas normal Pupils: Equal, round and reactive pupils present EOM: EOMs intact bilaterally Neck Neck: Yes full ROM Resp Effort & Inspection: normal respiratory effort, able to speak in complete sentences and not labored Cardio Rate: regular rate Rhythm: regular rhythm GI Inspection: No distended Palpation (GI): Soft to palpation, not firm, nontender, no guarding and not rigid Skin General skin exam: elasticity normal Neuro General: patient oriented x3 Cranial nerves: Yes Equal, round and reactive pupils present and Yes Bilaterally intact EOM present Cognition (Neuro): normal cognition Extrem Other: Patient is moving bilateral upper extremities without any difficulty. He is guarding against his left lower extremity. He has no tenderness of ablation of the hips bilaterally. He has significant ecchymosis and edema to the left heel/proximal foot. No left knee tenderness Course Reevaluation(s) Reevaluation #1: The patient's boss called to ask if we can get a drug screen for the patient. I discussed this with the patient and informed him that his boss was asking if we can get a drug screen for him. The patient consented to drug screening and at alcohol testing. These orders were obtained, however they were obtained after the patient received 2 doses of narcotic IV analgesia Time: 22:28 Medications Administered Discontinued Medications Generic Name Dose Route Start Last Admin Trade Name Freq PRN Reason Stop Dose Admin Hydromorphone HCl 2 mg 10/06/23 18:53 10/06/23 18:57 Hydromorphone Hcl 2 Mg/Ml Vial IVPUSH 10/06/23 18:54 2 mg ONCE ONE Administration Protocol Iohexol 85 ml 10/06/23 19:37 10/06/23 19:38 Iohexol 350 Mg/Ml 100 Ml Infus..Btl IV 10/06/23 19:38 85 ml ONCE ONE Administration Morphine Sulfate 4 mg 10/06/23 18:16 10/06/23 18:20 Morphine Sulfate 4 Mg/Ml Cartridge IVPUSH 10/06/23 18:17 4 mg ONCE ONE Administration Protocol Ondansetron HCl 4 mg 10/06/23 18:16 10/06/23 18:20 Ondansetron Hcl 4 Mg/2 Ml Vial IVPUSH 10/06/23 18:17 4 mg ONCE ONE Administration Procedures Orthopedic Splinting/Casting Injury #1: Side: left Lower Extremity Injury Location: lower leg, ankle and foot Lower Extremity Immobilizer: posterior splint Other Orthopedic Equipment: crutches Medical Decision Making Medical Decision Making MDM Narrative: 48-year-old male presents for evaluation of a left calcaneal fracture. Due to the significant injury and axial loading mechanism call will get a CT scan of the brain, cervical spine, chest abdomen. Will discuss with Orthopedics regarding splinting, but your likely require posterior walking spine for left lower extremity Differential Diagnosis Differential Diagnoses: The differential diagnosis associated with the presentation includes Ankle sprain Ankle fracture Contusion Ankle dislocation Pelvic fracture Spinal compression fracture Admission/Observation Consideration of admission/observation: Escalation of care including admission/observation considered Consider admission for surgical tear of the left calcaneus Consult Healthcare Provider Management of the patient was discussed with: [employer] T[employer] (Orthopedics, Dr. Crenshaw. He recommends posterior walking splint, nonweightbearing and follow- up) Lab Data MDM Lab Attestation statement: I reviewed the patient's lab results. Leukocytosis to 16 point K which is likely reactive due to the injury. Very mild anemia with normal hemoglobin of 14.0 and a slightly low hematocrit 41.2. Electrolytes within normal limits. Normal renal function 10/06/23 18:15 10/06/23 18:15 Labs: Lab Results 10/06/23 10/06/23 10/06/23 Range/Units 18:15 21:19 21:53 WBC 16.6 H (4.8-10.8) X10*3/uL RBC 4.50 L (4.60-5.80) X10*6/uL Hgb 14.0 (14.0-18.0) g/dl Hct 41.2 L (42.0-52.0) % MCV 91.6 (80.0-98.0) fL MCH 31.1 (27.0-33.0) pg MCHC 34.0 (31.0-36.0) g/dl RDW 11.9 (11.0-16.0) % Plt Count 296 (160-400) X10*3/uL MPV 9.4 (9.4-12.4) fL Immature Gran % (Auto) 0.5 H (0.0-0.4) % Neut % (Auto) 84.7 H (45-73) % Lymph % (Auto) 8.2 L (20-40) % [place] % (Auto) 6.4 (2-11) % Eos % (Auto) 0.1 (0-4) % Baso % (Auto) 0.1 (0-2) % Lymph # (Auto) 1.4 (1.2-4.9) X10*3/uL [place] # (Auto) 1.1 (0.1-1.2) X10*3/uL Eos # (Auto) 0.0 (0.0-0.4) X10*3/uL Baso # (Auto) 0.0 (0.0-0.2) X10*3/uL Abs Immat Gran (auto) 0.08 H (0.00-0.03) X10*3/uL Absolute Neuts (auto) 14.1 H (2.0-8.3) x10*3/uL Absolute Nucleated RBC 0.000 (0.0-0.012) X10*3/uL Nucleated RBC % (auto) 0.0 (0.0-0.2) /100WBC Sodium 137 (135-145) mmol/L Potassium 3.9 (3.3-5.1) mmol/L Chloride 100 (96-108) mmol/L Carbon Dioxide 24 (22-29) mmol/L Anion Gap 17 (12-20) BUN 16 (9-16) mg/dL Creatinine 0.85 (0.5-1.4) mg/dL Estim Creat Clear Calc 105.1 Estimated GFR > 60 Random Glucose 101 (60-115) mg/dL Calcium 9.7 (8.4-10.2) mg/dL Total Bilirubin 0.4 (0.0-1.0) mg/dL AST 22 (5-37) U/L ALT 20 (0-40) U/L Alkaline Phosphatase 70 (39-117) U/L Troponin I High Sens < 2.7 (<3.5-35.0) ng/L Total Protein 7.7 (6.5-8.0) g/dL Albumin 4.4 (3.5-5.0) g/dL Urine Opiates Screen POSITIVE H (Not Detect) Urine Fentanyl Screen Not Detected (Not Detect) Ur Barbiturates Screen Not Detected (Not Detect) Ur Phencyclidine Scrn Not Detected (Not Detect) Ur Amphetamines Screen Not Detected (Not Detect) U Benzodiazepines Scrn Not Detected (Not Detect) Urine Cocaine Screen Not Detected (Not Detect) U Marijuana (THC) Screen POSITIVE H (Not Detect) Ethyl Alcohol < 10 mg/dL Radiology Impression Discussion of test interpretation with radiology: I have reviewed the radiologist's reading. (Comminuted and displaced intra-articular fracture involving the mid body of the calcaneus superimposed on a chronic appearing deformity of the posterior calcaneus) Radiologist Impression: CT scan of the brain, cervical spine, chest, abdomen pelvis with no acute traumatic injuries. Discharge Plan Discharge Clinical Impression: Calcaneus fracture, left Patient Disposition: Home, Self-Care Instructions: Calcaneal Fracture (ED) Additional Instructions: You have a fracture of your calcaneus or heel bone. It is important that you do not put any weight on this foot. Use the crutches to get around Call Dr. Crenshaw's office tomorrow morning to schedule follow-up You will likely require surgery and 2-3 weeks Use ibuprofen/Tylenol for pain You may use morphine for more severe, breakthrough pain This may make you sleepy, do not drink alcohol or drive after taking Prescriptions: New morphine 15 mg tablet 15 mg PO Q4-6H PRN (Reason: severe pain (scale score 7-10)) Qty: 20 0RF Rx Instructions: Partial Fill upon patient request. No Action naproxen 500 mg tablet 500 mg PO BID PRN (Reason: pain) 7 Days 0RF prednisone 50 mg tablet 50 mg PO DAILY 4 Days Qty: 4 0RF ibuprofen 800 mg tablet 800 mg PO Q8H PRN (Reason: pain) Qty: 14 0RF prednisone 20 mg tablet 40 mg PO DAILY 5 Days Qty: 10 0RF oxycodone-acetaminophen [Percocet] 5-325 mg tablet 1 tab PO Q6H PRN (Reason: pain) Qty: 15 0RF hydrocodone-acetaminophen 5-325 mg tablet 1 tab PO Q8H PRN (Reason: pain) Qty: 6 0RF cyclobenzaprine 10 mg tablet 10 mg PO TID PRN (Reason: muscle spasm) Qty: 10 0RF ibuprofen 800 mg tablet 800 mg PO Q8H PRN (Reason: pain) Qty: 14 0RF amoxicillin-pot clavulanate 875-125 mg tablet 1 tab PO BID Qty: 20 0RF ibuprofen 600 mg tablet 600 mg PO Q8H PRN (Reason: pain) Qty: 30 0RF tramadol 50 mg tablet 50 mg PO Q8H PRN (Reason: severe pain (scale score 7-10)) Qty: 10 0RF Referrals: Saroj Crenshaw MD [Physician] - (left calcaneal fracture)
[2023-10-06 19:10] LABS: Troponin-I High Sensitivity < 2.7 ng/L (<3.5-35.0)
[2023-10-06] MEDS: iohexoL 350 MG/ML 100 ML INFUS..BTL 85 ML IV (19:38)
[2023-10-06 21:36] LABS: Ethanol < 10 mg/dL
[2023-10-06 22:08] LABS: Amphetamine Screen Urine Not Detected (Not Detect); Barbiturates, Urine Not Detected (Not Detect); Benzodiazepines Screen Urine Not Detected (Not Detect); Cannabinoid Screen Urine POSITIVE (Not Detect); Cocaine Screen Urine Not Detected (Not Detect); Fentanyl, urine Not Detected (Not Detect); Opiate Screen Urine POSITIVE (Not Detect); Phencyclidine Screen Urine Not Detected (Not Detect)
[2023-10-06 22:30] VITALS: BP 123/70; PULSE 77; RESP 14; TEMP 36.4; O2SAT 98
[2023-10-06] MEDS: HYDROmorphone HCl 1 MG/ML SYRINGE IVPUSH (22:32)
== END 2023-10-06 22:43 | disposition home or self-care (01) ==
PROVIDERS: Physician Assistant; Emergency Provider Internal Medicine
DX: S92.002A Unspecified fracture of left calcaneus, initial encounter for closed fracture (principal); W17.89XA Other fall from one level to another, initial encounter; Y93.89 Activity, other specified; Y92.89 Other specified places as the place of occurrence of the external cause; Y99.0 Civilian activity done for income or pay; Z79.899 Other long term (current) drug therapy
CPT/HCPCS: 29515; 36415; 70450; 71260; 72125; 73700; 74177; 80053; 80307; 84484; 85025; 96374; 96375; 96376; 99284; J1170; J2270; J2405; Q9967

== ENCOUNTER 2023-10-10 10:50 | Outpatient (AMB) | payer OTHER, SELFPAY ==
--- NOTE | 2023-10-10 10:56 | A.OFFVIS_ITS ---
Intake Vital Signs 10/10/23 10:57 Height 5 ft 9 in Weight 180 lb BMI 26.6 Intake Visit Reasons: FC-Calcaneus fracture, left-DOI 10/06/23 Intake Note: Eloy is a 48 year old male who presents today for a evaluation of his left ankle pain, DOI 10/06/23. Patient reports he fell from a ladder approximately 10 ft off the ground. He states that he was on the ladder and was slipping off, therefore jumped backwards and landed on his feet. Seen in in ED same day. States currently has has pain 10/10 on pain. scale. Allergies No Known Allergies Allergy (Unknown, Verified 10/10/23 11:02) NOT APPLICABLE HPI FC-Calcaneus fracture, left-DOI 10/06/23 HPI Details 48-year-old male who presents in the off ice today, as a new patient, for an evaluation of left foot pain. The patient presented to the ED on 10/06/2023 status post a fall from a ladder where he was slipping off and jumped landing on his feet about 10 feet to the ground. X-rays of the left foot/ankle were obtained. He was placed in a posterior splint and given crutches. While in the office he reports his pain to be a 10/10. [facility] Medical History No known health problems Social History Substance Use Type: Marijuana Review of Systems Const All systems reviewed & are unremarkable except as noted in HPI and below Physical Exam Vital Signs: BMI result Body Mass Index 26.6 Const General: cooperative and no acute distress Orientation/consciousness: patient oriented x3 Resp Effort & Inspection: normal respiratory effort and able to speak in complete sentences Cardio Peripheral pulses: Peripheral pulses 2+ throughout Skin General skin exam: no rashes or lesions noted Neuro General: patient oriented x3 Extrem Other: Left foot/ankle: Moderate to severe circumferential edema with a large fracture blister located on the medial aspect of the ankle roughly 3.5 cm by 3.5 cm. No signs of infection. Able to move all digits. Sensation intact. Pedal pulse intact. Office Procedures Fracture Care Fracture Billing Code: Fracture Billing Code Assessment & Plan Assessment & Plan (1) Calcaneus fracture, left: Code(s): S92.002A - Unspecified fracture of left calcaneus, initial encounter for closed fracture Qualifiers: Calcaneus location: unspecified portion of calcaneus Encounter type: initial encounter Fracture alignment: displaced Fracture type: closed Qualified Code(s): S92.002A - Unspecified fracture of left calcaneus, initial encounter for closed fracture Plan Mr. aRmos is a 48-year-old male who presents in the office today, as a new patient, for an evaluation of left foot pain. The patient presented to the ED on 10/06/2023 status post a fall from a ladder where he was slipping off and jumped landing on his feet about 10 feet to the ground. X-rays of the left foot/ankle were obtained. He was placed in a posterior splint and given crutches. While in the office he reports his pain to be a 10/10. Dr. Crenshaw was available to see the patient with me while in the office today and a collaborative treatment plan was made. We discuss the possibility of surgical intervention but at this time we have decided to move forward with splinting and to further evaluate in 2 weeks. He was placed in a custom made splint while in the office today. He will remain non-weight bearing at this time. He will return to the office next week to be placed in a new custom made splint to put the ankle in more dorsiflexion. Dr. Crenshaw expressed the importance of discontinuing smoking to help with the healing process. Follow up will be in 1 week for a splint change and 2 weeks for a follow up to further evaluate the need for surgical intervention, or sooner if needed. X-rays of the left ankle, obtained on 10/06/2023, revealed: 1. Comminuted burst fracture of left calcaneus. No dislocation seen. 2. Old bone fragments tip of medial and lateral malleoli likely old injury. 3. Diffuse left ankle soft tissue swelling. Medications: New oxycodone-acetaminophen 5-325 mg (Percocet) Partial Fill upon patient request. 1 tab PO Q4-6H PRN 42 tabs 0RF pain 7 days Patient Instructions: Scribed for Monica Gay PA-C by kristin Goff scribe, on 10/10/2023 at 10:57 am, EST. Coding Level of Care Code New Pt Level 4 (39609) Diagnoses Closed displaced fracture of left calcaneus, unspecified portion of calcaneus, initial encounter S92.002A Calcaneus location: unspecified portion of calcaneus Encounter type: initial encounter Fracture alignment: displaced Fracture type: closed CPT Codes Fracture Care - Fracture Billing Code: Fracture Billing Code ([id number])
[2023-10-10 10:57] VITALS: BMI 26.6
== END 2023-10-10 11:51 | disposition home or self-care (01) ==
PROVIDERS: Visit Provider Physician Assistant
DX: S92.002A Unspecified fracture of left calcaneus, initial encounter for closed fracture (principal); W11.XXXA Fall on and from ladder, initial encounter
CPT/HCPCS: 28400; 99204

== ENCOUNTER → 2023-10-10 10:50 | Outpatient (BNVA) | payer OTHER, SELFPAY | PROVIDERS: Visit Provider Physician Assistant | DX: S92.002A Unspecified fracture of left calcaneus, initial encounter for closed fracture (principal) | CPT/HCPCS: 28400 ==

== ENCOUNTER 2023-10-18 11:22 | Outpatient (AMB) | payer OTHER, SELFPAY ==
--- NOTE | 2023-10-18 12:01 | A.OFFVIS_ITS ---
Intake Intake Visit Reasons: ov- Calcaneus fracture, left-DOI 10/06/23 Intake Note: This is a 48 year old male who presents for splint change. He is being seen for a calcaneus fracture, left DOI 10/06/23. Allergies No Known Allergies Allergy (Unknown, Verified 10/18/23 12:04) NOT APPLICABLE Medication List - Last Reconciled 10/18/23 by Shalonda Cole RN cyclobenzaprine 10 mg PO TID PRN hydrocodone-acetaminophen 5-325 mg 1 tab PO Q8H PRN ibuprofen 800 mg PO Q8H PRN ibuprofen 800 mg PO Q8H PRN ibuprofen 600 mg PO Q8H PRN morphine 15 mg PO Q4-6H PRN naproxen 500 mg PO BID PRN 7 days oxycodone-acetaminophen 5-325 mg (Percocet) 1 tab PO Q4-6H PRN 7 days prednisone 40 mg (2 x 20 mg) PO DAILY 5 days tramadol 50 mg PO Q8H PRN HPI ov- Calcaneus fracture, left-DOI 10/06/23 HPI Details 48-year-old male who returns to the [facility] today for a follow-up of left calcaneus fracture, 10/06/23. He presents today for a splint change. He states he has been taking the Morphine sufate to help him sleep and had to take the Oxycodone, 2 tabs q5 hrs for the first two nights but now is only taking one q5 hrs. [facility] Medical History No known health problems Social History Substance Use Type: Marijuana Review of Systems Const All systems reviewed & are unremarkable except as noted in HPI and below Physical Exam Const General: cooperative and no acute distress Orientation/consciousness: patient oriented x3 Resp Effort & Inspection: normal respiratory effort and able to speak in complete sentences Cardio Peripheral pulses: Peripheral pulses 2+ throughout Skin General skin exam: no rashes or lesions noted Neuro General: patient oriented x3 Extrem Other: Left foot/ankle: Improving edema localized to the foot with a fracture blister located on the medial aspect of the ankle with scant drainage. No signs of infection. Able to move all digits.Calf supple, non tender. Sensation intact. Pedal pulse intact. Office Procedures Casting/Splints [id number] Leg splint application Procedure code (CPT) selection complete Assessment & Plan Assessment & Plan (1) Calcaneus fracture, left: Code(s): S92.002A - Unspecified fracture of left calcaneus, initial encounter for closed fracture Qualifiers: Calcaneus location: unspecified portion of calcaneus Encounter type: subsequent encounter Fracture alignment: displaced Fracture type: closed Fracture healing: with routine healing Qualified Code(s): S92.002D - Unspecified fracture of left calcaneus, subsequent encounter for fracture with routine healing Plan Xeroform was applied to the fracture blister. He was placed in a posterior splint in a neutral position with ankle to 90 degrees. He will continue non weight bearing and see us back in 1 week. He is already scheduled for an a ppointment on 28 October for another skin check. Patient Instructions: Scribed for Johanna Shepherd PA-C, by Rolando Merrill medical affairs director, on 10/18/2023 at 11:30 AM EST. IJohanna PA-C, have personally reviewed and agree with the information entered by the scribe. Coding Level of Care Code Global (93155) Diagnoses Closed displaced fracture of left calcaneus with routine healing, unspecified portion of calcaneus, subsequent encounter S92.002D Calcaneus location: unspecified portion of calcaneus Encounter type: subsequent encounter Fracture alignment: displaced Fracture type: closed Fracture healing: with routine healing CPT Codes Splint - CPT: 41142-Toypg Leg splint application ([id number])
== END 2023-10-18 12:59 | disposition home or self-care (01) ==
PROVIDERS: Visit Provider Physician Assistant
DX: S92.002D Unspecified fracture of left calcaneus, subsequent encounter for fracture with routine healing (principal)
CPT/HCPCS: 29515; 99024

== ENCOUNTER → 2023-10-18 11:22 | Outpatient (BNVA) | payer OTHER, SELFPAY | PROVIDERS: Visit Provider Physician Assistant | DX: S92.002D Unspecified fracture of left calcaneus, subsequent encounter for fracture with routine healing (principal) | CPT/HCPCS: 29515 ==

== ENCOUNTER 2023-10-28 09:13 | Outpatient (REF) | payer OTHER, SELFPAY ==
--- NOTE | ~2023-10-28 | XR_ITS ---
EXAMINATION: XR FOOT, LEFT CLINICAL INFORMATION: Pain. COMPARISON: CT left ankle and left ankle and foot radiographs dated 10/06/2023. TECHNIQUE: AP, lateral, and oblique views of the left foot. FINDINGS: A comminuted fracture is redemonstrated of the left calcaneus, in stable alignment. Persistent fracture lines are seen, with no significant new callus formation. Again, the subtalar joint is disrupted posteriorly, with some widening. The tibiotalar joint is well-maintained, with mild osteoarthritic change. There is a left ankle joint effusion. No soft tissue gas or foreign body is seen. XR/XR foot LT min 3V IMPRESSION: A comminuted, complex left calcaneal fracture is redemonstrated, in stable alignment. No significant new callus formation is noted.
== END 2023-10-28 09:14 | disposition home or self-care (01) ==
LOC: HO.HOSX 09:13
PROVIDERS: Visit Provider Physician Assistant
DX: S92.002D Unspecified fracture of left calcaneus, subsequent encounter for fracture with routine healing (principal)
CPT/HCPCS: 29405; 73630

== ENCOUNTER 2023-10-28 10:08 | Outpatient (AMB) | payer OTHER, SELFPAY ==
--- NOTE | 2023-10-28 10:18 | MHC.OFFVIS ---
Intake Intake Visit Reasons: ov- Calcaneus fracture, left-DOI 10/06/23 Intake Note: Eloy is a 48 year old male who presents today for a evaluation of his left ankle pain, DOI 10/06/23. Patient reports still having pain and discomfort. He states that he notices that his foot is a bit swollen. Allergies No Known Allergies Allergy (Unknown, Verified 10/28/23 10:21) NOT APPLICABLE HPI ov- Calcaneus fracture, left-DOI 10/06/23 HPI Details 48-year-old male who presents in the office today for a follow up of a left calcaneus fracture, which occurred on 10/06/2023 status post a fall from a ladder where he was slipping off and jumped landing on his feet about 10 feet to the ground. I last saw the patient in the office on 10/10/2023 where he was placed in a custom made splint and instructed to remain non-weight bearing. While in the office today he reports he is still having pain and discomfort. He reports having some edema. He states he placed the foot flat on the floor to rest and this caused him pain. [facility] Medical History No known health problems Social History Substance Use Type: Marijuana Review of Systems Const All systems reviewed & are unremarkable except as noted in HPI and below Physical Exam Const General: cooperative, healthy appearing and no acute distress Resp Effort & Inspection: normal respiratory effort and able to speak in complete sentences Cardio Rate: regular rate Peripheral pulses: Peripheral pulses 2+ throughout GI Palpation (GI): Soft to palpation Skin Lesions: no lesions Rashes: no rashes Extrem Other: Left foot/ankle: Improving edema localized to the foot. Area of fracture blister located on the medial aspect of the ankle has ruptured. No signs of infection. Able to move all digits. Calf supple, non tender. Sensation intact. Pedal pulse intact. Office Procedures Casting/Splints [id number] Leg Cast Application Procedure code (CPT) selection complete Assessment & Plan Assessment & Plan (1) Calcaneus fracture, left: Code(s): S92.002A - Unspecified fracture of left calcaneus, initial encounter for closed fracture Qualifiers: Calcaneus location: unspecified portion of calcaneus Encounter type: subsequent encounter Fracture alignment: displaced Fracture healing: with routine healing Fracture type: closed Qualified Code(s): S92.002D - Unspecified fracture of left calcaneus, subsequent encounter for fracture with routine healing Plan Mr. Ramos is a 48-year-old male who presents in the office today for a follow up of a left calcaneus fracture, which occurred on 10/06/2023 status post a fall from a ladder where he was slipping off and jumped landing on his feet about 10 feet to the ground. I last saw the patient in the office on 10/10/2023 where he was placed in a custom made splint and instructed to remain non-weight bearing. While in the office today he reports he is still having pain and discomfort. He reports having some edema. He states he placed the foot flat on the floor to rest and this caused him pain. Dr. Crenshaw was available to speak with me and review the patient?s x-rays while in the office today and a collaborative treatment plan was made. He was placed in a well padded short leg cast, custom made. He will remain non-weight bearing for 10 weeks. Follow up will be in 4 weeks with possible transition to physical therapy for non-weight bearing ROM. X-rays of the left foot which were obtained while in the office today and were reviewed by me, Monica Gay PA-C, revealed community distal left calcaneus fracture. Orders: Orders XR foot LT min 3V Today M79.673 - Pain in unspecified foot Patient Instructions: Scribed for Monica Gay PA-C by Comfort Miller medical claims representative, on 10/28/2023 at 10:09 am, EST. Coding Level of Care Code Global (96894) Diagnoses Closed displaced fracture of left calcaneus with routine healing, unspecified portion of calcaneus, subsequent encounter S92.002D Calcaneus location: unspecified portion of calcaneus Encounter type: subsequent encounter Fracture alignment: displaced Fracture healing: with routine healing Fracture type: closed CPT Codes Casting - CPT: 09983-Oktkv Leg Cast Application ([id number])
== END 2023-10-28 11:23 | disposition home or self-care (01) ==
PROVIDERS: Visit Provider Physician Assistant
DX: S92.002D Unspecified fracture of left calcaneus, subsequent encounter for fracture with routine healing (principal)
CPT/HCPCS: 29405; 99024

== ENCOUNTER 2023-10-31 08:14 | Outpatient (AMB) | payer OTHER, SELFPAY ==
--- NOTE | 2023-10-31 08:26 | MHC.OFFVIS ---
Intake Intake Visit Reasons: O/VCalcaneus fx, left-DOI 10/06/23 cast change Intake Note: Gayatri 48 year old male presents today for a cast change s/p left calcaneus fx, DOI 10/06/23. Patient reports cast being too tight, stating swelling has been present. Allergies No Known Allergies Allergy (Unknown, Verified 10/31/23 08:49) NOT APPLICABLE HPI O/VCalcaneus fx, left-DOI 10/06/23 cast change HPI Details 48-year-old male who returns to the office today for a cast change s/p left calcaneus fracture, 10/06/23. He reports his cast is too tight on the foot. He also c/o swelling in his ankle but denies any pain. [facility] Medical History No known health problems Social History Substance Use Type: Marijuana Review of Systems Const All systems reviewed & are unremarkable except as noted in HPI and below Physical Exam Const General: cooperative and no acute distress Orientation/consciousness: patient oriented x3 Resp Effort & Inspection: normal respiratory effort and able to speak in complete sentences Cardio Peripheral pulses: Peripheral pulses 2+ throughout Skin General skin exam: no rashes or lesions noted Neuro General: patient oriented x3 Extrem Other: Left foot/ankle: Improving edema localized to the foot with a fracture blister located on the medial aspect of the ankle with scant drainage. No signs of infection. Able to move all digits.Calf supple, non tender. Sensation intact. Pedal pulse intact. Office Procedures Casting/Splints [id number] Leg Cast Application Procedure code (CPT) selection complete Assessment & Plan Assessment & Plan (1) Calcaneus fracture, left: Code(s): S92.002A - Unspecified fracture of left calcaneus, initial encounter for closed fracture Qualifiers: Calcaneus location: unspecified portion of calcaneus Encounter type: subsequent encounter Fracture alignment: displaced Fracture healing: with routine healing Fracture type: closed Qualified Code(s): S92.002D - Unspecified fracture of left calcaneus, subsequent encounter for fracture with routine healing Plan He was placed in a short leg cast non weight bearing. He will follow-up in his next scheduled appointment, sooner if needed. Patient Instructions: Scribed for Johanna Shepherd PA-C, by Rolando Merrill medical office secretary, on 10/2023 at 8:30 AM EST. Johanna Simpson PA-C, have personally reviewed and agree with the information entered by the scribe. Coding Level of Care Code Global (38276) Diagnoses Closed displaced fracture of left calcaneus with routine healing, unspecified portion of calcaneus, subsequent encounter S92.002D Calcaneus location: unspecified portion of calcaneus Encounter type: subsequent encounter Fracture alignment: displaced Fracture healing: with routine healing Fracture type: closed CPT Codes Casting - CPT: 14561-[id number] Leg Cast Application ([id number])
== END 2023-10-31 09:23 | disposition home or self-care (01) ==
PROVIDERS: Visit Provider Physician Assistant
DX: S92.002D Unspecified fracture of left calcaneus, subsequent encounter for fracture with routine healing (principal)
CPT/HCPCS: 29405; 99024

== ENCOUNTER → 2023-10-31 08:14 | Outpatient (BNVA) | payer OTHER, SELFPAY | PROVIDERS: Visit Provider Physician Assistant | DX: S92.002D Unspecified fracture of left calcaneus, subsequent encounter for fracture with routine healing (principal) | CPT/HCPCS: 29405 ==

== ENCOUNTER 2023-12-02 11:05 | Outpatient (REF) | payer OTHER, SELFPAY ==
--- NOTE | ~2023-12-02 | XR_ITS ---
EXAMINATION: XR CALCANEUS, LEFT CLINICAL INFORMATION: Follow-up calcaneal fracture. COMPARISON: Prior radiographs, most recently 10/28/2023. TECHNIQUE: Lateral and axial views of the left calcaneus were obtained. FINDINGS: There is stable alignment of a comminuted fracture of the left calcaneus. Again, there is no significant new callus formation. There is stable disruption of the subtalar joint posteriorly, with widening. The tibiotalar articulation is preserved. A small left ankle joint effusion is again seen. No soft tissue gas or foreign body is noted. XR/XR calcaneus LT min 2V IMPRESSION: There is stable alignment of a complex left calcaneal fracture. No significant new callus formation is noted.
== END 2023-12-02 11:06 | disposition home or self-care (01) ==
LOC: HO.HOSX 11:05
PROVIDERS: Visit Provider Orthopaedic Surgery
DX: S92.002A Unspecified fracture of left calcaneus, initial encounter for closed fracture (principal)
CPT/HCPCS: 73650

== ENCOUNTER 2023-12-02 12:17 | Outpatient (AMB) | payer OTHER, SELFPAY ==
--- NOTE | 2023-12-02 12:31 | A.OFFVIS_ITS ---
Intake Intake Visit Reasons: OV-Calcaneus fracture, left-DOI 10/06/23 Intake Note: Eloy is a 48 year old male who presents today for a follow up of his left calcaneus fracture, DOI 10/06/2023. Cast Off Xrays updated today in office. Patient reports that he is doing well, he has some numbness in the heel. He has most of his pain first thing in the morning or before going to bed. Allergies No Known Allergies Allergy (Unknown, Verified 12/02/23 12:38) NOT APPLICABLE HPI OV-Calcaneus fracture, left-DOI 10/06/23 HPI Details Eloy is a 48 year old man who presents S/P left calcaneus fracture, DOI 10/06/2023. He says he is doing well overall. he has some mild numbness in his heel, and he feels increased pain first thing in the morning, and occasionally before bed. [facility] Medical History No known health problems Social History Substance Use Type: Marijuana Review of Systems Const All systems reviewed & are unremarkable except as noted in HPI and below Physical Exam Const General: no acute distress, alert and awake Orientation/consciousness: patient oriented x3 HEENT Head: Yes normocephalic and Yes atraumatic Eyes EOM: EOMs intact bilaterally Resp Effort & Inspection: normal respiratory effort and able to speak in complete sentences Cardio Jugular venous distension: no JVD Skin General skin exam: turgor normal Rashes: no rashes Neuro General: patient oriented x3 Extrem Other: skin intact lateral calcaneal prominenece and TTP Psych Appearance: grossly normal Affect: normal affect Attitude: cooperative Results Reviewed Results Reviewed: I personally reviewed relevant radiographs. Comminuted ,widened calcaneuas fracture Assessment & Plan Assessment & Plan (1) Calcaneus fracture: Code(s): S92.009A - Unspecified fracture of unspecified calcaneus, initial encounter for closed fracture Plan: Comminuted [place] 4 calcaneus fracture. We have elected to treat this conservatively given fracture severity and smoking status. He understands the treatment plan. Was placed in a boot today and will continue NWB for 4 weeks Plan Prepared for Saroj Crenshaw MD by Case Mei, director medical science, on 12/02/23 at 1:16 PM, EST. Orders: Orders XR calcaneus LT min 2V 12/02/23 S92.009A - Unspecified fracture of unspecified calcaneus, initial encounter for closed fracture Coding Level of Care Code Est Pt Level 3 (65208) Diagnoses Calcaneus fracture S92.009A
== END 2023-12-02 13:05 | disposition home or self-care (01) ==
PROVIDERS: Visit Provider Orthopaedic Surgery
DX: S92.002A Unspecified fracture of left calcaneus, initial encounter for closed fracture (principal)
CPT/HCPCS: 99024

== ENCOUNTER 2024-01-02 11:34 | Outpatient (REF) | payer OTHER, SELFPAY ==
--- NOTE | ~2024-01-02 | XR_ITS ---
EXAMINATION: XR ANKLE, LEFT CLINICAL INFORMATION: Pain. COMPARISON: Radiograph left calcaneus to 07/13/2024. CT left ankle 10/06/2023. TECHNIQUE: AP, lateral, and mortise views of the left ankle. FINDINGS: Redemonstrated nonspecific diffuse bone marrow heterogeneity, limiting assessment of fine osseous details by radiograph. Grossly similar appearance of a complex calcaneal fracture. Stable subtle degenerative changes versus old avulsion injuries in the bilateral malleoli. As well as unchanged likely sequela of old avulsion injury adjacent to the base of the fifth metatarsal. No acute-appearing fractures. No subluxation. Similar degree of diffuse soft tissue swelling. XR/XR ankle LT min 3V IMPRESSION: 1. Grossly similar appearance of a complex calcaneal fracture. 2. No acute fractures or subluxation. 3. Similar degree of diffuse bone marrow heterogeneity. 4. Unchanged diffuse soft tissue swelling. If symptoms persist, recommend correlation with CT or MRI of the left ankle without IV contrast to rule out radiographically occult abnormalities, especially in this examination that is limited in view of the degree of heterogeneity of the bone marrow.
== END 2024-01-02 11:35 | disposition home or self-care (01) ==
LOC: HO.HOSX 11:34
PROVIDERS: Visit Provider Orthopaedic Surgery
DX: S92.002A Unspecified fracture of left calcaneus, initial encounter for closed fracture (principal)
CPT/HCPCS: 73610

== ENCOUNTER 2024-01-02 12:30 | Outpatient (AMB) | payer OTHER, SELFPAY ==
--- NOTE | 2024-01-02 12:50 | MHC.OFFVIS ---
Intake Intake Visit Reasons: OV-Calcaneus fracture, left-DOI 10/06/23 Intake Note: Eloy is a 48 year old male who presents today for a follow up of his left calcaneus fracture, DOI 10/06/2023. At his last visit he was placed in a boot and instructed to be NWB for four more weeks. Patient reports that he is doing well, he has some sharp pain in the heel as well as constant numbness and tingling on the heel. Remains NWB He complains of pain in the right hip/lower back from over use and being non weight bearing on crutches. Allergies No Known Allergies Allergy (Unknown, Verified 01/02/24 12:51) NOT APPLICABLE HPI OV-Calcaneus fracture, left-DOI 10/06/23 HPI Details Eloy is a 48 year old male who presents today for a follow up of his left calcaneus fracture, DOI 10/06/2023. At his last visit he was placed in a boot and instructed to be NWB for four more weeks. Patient reports that he is doing well, he has some sharp pain in the heel as well as constant numbness and tingling on the heel. Remains NWB He complains of pain in the right hip/lower back from over use and being non weight bearing on crutches. Onset 10/06/23 Characteristics of symptom or complaint Sharp pain in heel, Numbness in heel PFSH Medical History No known health problems Social History Substance Use Type: Marijuana Physical Exam Extrem Other: minimal STS Pain wiht subtalar jointline palpation and pain with passive eversion/inversion 20 deg arc of ankle motion SILT Results Reviewed Results Reviewed: I personally reviewed relevant radiographs. Comminuted and healing calcaneus fracture Assessment & Plan Assessment & Plan (1) Calcaneus fracture: Code(s): S92.009A - Unspecified fracture of unspecified calcaneus, initial encounter for closed fracture Plan: Progressive WBAT in boot Physical therapy Sedentary work only 8wk follow up Orders: Orders XR ankle LT min 3V Today M25.579 - Pain in unspecified ankle and joints of unspecified foot PT Evaluation and Treatment Today S92.009A - Unspecified fracture of unspecified calcaneus, initial encounter for closed fracture Coding Level of Care Code Est Pt Level 3 (19668) Diagnoses Calcaneus fracture S92.009A
== END 2024-01-02 13:06 | disposition home or self-care (01) ==
PROVIDERS: Visit Provider Orthopaedic Surgery
DX: S92.002A Unspecified fracture of left calcaneus, initial encounter for closed fracture (principal)
CPT/HCPCS: 99024

== ENCOUNTER 2024-01-23 13:29 | Outpatient (REF) | payer OTHER, SELFPAY ==
--- NOTE | ~2024-01-23 | XR_ITS ---
EXAMINATION: XR CALCANEUS, LEFT CLINICAL INFORMATION: Unspecified fracture of calcaneus. COMPARISON: 01/02/2024 TECHNIQUE: Lateral and axial views of the left calcaneus were obtained. FINDINGS: Again noted is the calcaneal deformity from the comminuted intra-articular fractures that had involved subtalar and calcaneocuboid joints. There is irregular flattening of the calcaneus, and irregular joint surface depression is noted at the subtalar joint. There is sclerosis around fracture lines from a healing response. A residual lucent gap in the calcaneal articular surface at the posterior subtalar joint is difficult to precisely measure; it appears to be at least 0.4 cm AP on the lateral view. The previously displaced ossific fragments of the medial and lateral calcaneus appear to be fusing to other fragments of the injured calcaneus. There is periarticular osteopenia of the foot. There appears to be a prominent os trigonum. XR/XR calcaneus LT min 2V IMPRESSION: There has been moderate healing of the comminuted, displaced intra-articular fracture of the calcaneus. No significant change in the calcaneal deformity compared to 01/02/2024.
== END 2024-01-23 13:30 | disposition home or self-care (01) ==
LOC: HO.HOSX 13:29
PROVIDERS: Visit Provider Physician Assistant
DX: S92.002D Unspecified fracture of left calcaneus, subsequent encounter for fracture with routine healing (principal)
CPT/HCPCS: 73650; 99212

== ENCOUNTER 2024-01-23 14:06 | Outpatient (AMB) | payer OTHER, SELFPAY ==
--- NOTE | 2024-01-23 14:16 | A.OFFVIS_ITS ---
Intake Intake Visit Reasons: OV-Calcaneus fracture, left-DOI 10/06/23-follow up Intake Note: Pt presents to the office today for an office visit for left calcaneus fracture. DOI:10/06/23. Pt states he was coming down a ladder and got his foot stuck and then lept out of the ladder and landed on his feet standing up about 15 feet high. Pt states the pain is severe but states the swelling has gone down. Pt has been using a walking boot for 2 weeks. Allergies No Known Allergies Allergy (Unknown, Verified 01/23/24 14:16) NOT APPLICABLE HPI OV-Calcaneus fracture, left-DOI 10/06/23-follow up HPI Details 48-year-old male who returns [facility] for a follow-up of left calcaneus fracture, 10/06/23. He continues to have pain in his foot however the swelling has been improved. He has been using a walking boot for 2 weeks with benefits. He is working on physical therapy with benefits. He has no other concerns today. [facility] Medical History No known health problems Social History (Updated 01/23/24 @ 14:17 by Olga Koenig CMA) Patient Tobacco Use Status: Current everyday Tobacco user Cigarettes Per Day: 5 Substance Use Type: Marijuana Review of Systems Const All systems reviewed & are unremarkable except as noted in HPI and below Physical Exam Const General: cooperative and no acute distress Orientation/consciousness: patient oriented x3 Resp Effort & Inspection: normal respiratory effort and able to speak in complete sentences Cardio Peripheral pulses: Peripheral pulses 2+ throughout Skin General skin exam: no rashes or lesions noted Neuro General: patient oriented x3 Extrem Other: Left foot/ankle: Skin intact. Fracture blister well healed. No signs of infection. No tenderness along the calcaneus. Able to move all digits.Calf supple, non tender. Sensation intact. Pedal pulse intact. Results Reviewed Results Reviewed: I personally reviewed relevant radiographs. Comminuted and healing calcaneus fracture Assessment & Plan Assessment & Plan (1) Calcaneus fracture, left: Code(s): S92.002A - Unspecified fracture of left calcaneus, initial encounter for closed fracture Qualifiers: Calcaneus location: unspecified portion of calcaneus Encounter type: subsequent encounter Fracture alignment: displaced Fracture healing: with routine healing Fracture type: closed Qualified Code(s): S92.002D - Unspecified fracture of left calcaneus, subsequent encounter for fracture with routine healing Plan He is going to transition from the walking boot to a regular street shoe as long as pain allow. He will continue working with physical therapy and see me back in 6-8 weeks with new x-rays, sooner if needed. Orders: Orders XR calcaneus LT min 2V 01/23/24 S92.002A - Unspecified fracture of left calcaneus, initial encounter for closed fracture Patient Instructions: Scribed for Johanna Shepherd PA-C, by Rolando Merrill medical service technician, on 01/23/2024 at 1:30 PM [facility]. Johanna Simpson PA-C, have personally reviewed and agree with the information entered by the scribe. Coding Level of Care Code Est Pt Level 3 (07357) Diagnoses Closed displaced fracture of left calcaneus with routine healing, unspecified portion of calcaneus, subsequent encounter S92.002D Calcaneus location: unspecified portion of calcaneus Encounter type: subsequent encounter Fracture alignment: displaced Fracture healing: with routine healing Fracture type: closed
== END 2024-01-23 15:38 | disposition home or self-care (01) ==
PROVIDERS: Visit Provider Physician Assistant
DX: S92.002D Unspecified fracture of left calcaneus, subsequent encounter for fracture with routine healing (principal)
CPT/HCPCS: 99213

== ENCOUNTER 2024-02-16 13:00 | Outpatient (RCR) | payer OTHER, SELFPAY ==
--- NOTE | 2024-01-06 11:35 | MHC.PT.EP ---
[facility] [place] [facility] [place] [facility] [place] Office [address] Emerita Siu [address] [phone] F: [phone] F: [phone] F: [phone] F: [phone] Physical Therapy Plan of Care Date of Evaluation: 01/06/24 Date of Surgery: n/a Diagnosis: fx of L calcaneus Assessment: Patient is a 48 year old male presenting to PT with fx of L calcaneus. Pt reports onset of pain began 10/06/2023 due to falling off a ladder. He presents today with impairments in ankle ROM, ankle strength, LE strength, gait mechanics, MD restrictions for weight bearing. 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 Clinical presentation today is most consistent with signs and sx associated with fx of L calcaneus and pt will benefit from skilled PT 2 week x 8 weeks to address the following problems and impairments noted upon evaluation: ankle ROM, ankle strength, LE strength, gait mechanics, MD restrictions for weight bearing. These problems limit the patient with the following functional activities: work, ADLs, stair negotiation, ambulating. The prescribed treatment plan of care is medically necessary. Co-morbidities of none were identified and taken into considerations of plan of care. Pt was educated on HEP, role of PT, prognosis, POC. Frequency and Duration: The patient will be seen 2 x week x 8 weeks Short Term Goals: Pt will demonstrate symmetrical ankle ROM in 2 weeks. Pt will demonstrate ankle MMT strength 5/5 in 3 weeks. Pt will demonstrate ability to ambulate in the boot with no AD and good mechanics in 4 weeks. Pt will demonstrate hip MMT at least 4/5 in 4 weeks for improved lumbopelvic stability. Animal Physiology Teacher Goals: Pt will demonstrate improved LEFI score by 9 points in 8 weeks for improved functional mobility. Pt will demonstrate ability to ambulate with no boot pending MD clearance in 8 weeks for improved access to the community. Pt will demonstrate ability to negotiate stairs with min to no pain pending MD clearance in 8 weeks for prepare for return to work. Treatment Plan: Modalities to reduce pain, spasms and effusion. Manual therapy to restore motion and function. Therapeutic exercise to improve strength and flexibility. Neuromuscular re-education for posture and balance. Therapeutic activities to return to functional activities of daily living. Electronically signed by: Mila Melton, PT, DPT, ATC Please sign and return to therapist. Thank you for your referral.
--- NOTE | 2024-02-23 14:20 | MHC.PT.DC ---
[facility] [place] Office [place] Office [place] Office [address]u [address] [phone] F: [phone] F: [phone] F: [phone] F: [phone] Physical Therapy Discharge Report Diagnosis: fx of L calcaneus Date of Surgery: n/a Date of Evaluation: 01/06/24 Date of Discharge: 02/23/24 Treatments to Date: 11 Cancellations to Date: 1 No Shows to Date: 2 Discharge Status: Visit Non-compliance Discharge Summary: Pt has failed to comply with [facility] attendance policy and no showed his last 2 appointments. Pt therefore to be d/c. Electronically signed by: Mila Melton PT, DPT, ATC Please sign and return to therapist. Thank you for your referral.
== END 2024-02-23 14:20 | disposition home or self-care (01) ==
LOC: HO.PTCHIC 13:00
PROVIDERS: Visit Provider Orthopaedic Surgery
DX: S92.002D Unspecified fracture of left calcaneus, subsequent encounter for fracture with routine healing (principal)
CPT/HCPCS: 97110; 97112; 97161; 97530

== ENCOUNTER 2024-03-05 10:43 | Outpatient (REF) | payer OTHER, SELFPAY ==
--- NOTE | ~2024-03-05 | XR_ITS ---
EXAMINATION: XR CALCANEUS, LEFT CLINICAL INFORMATION: Unspecified fracture of left calcaneus initial encounter. COMPARISON: 01/23/2024, 01/02/2024. TECHNIQUE: Lateral and axial views of the left calcaneus were obtained. FINDINGS: Redemonstration of calcaneal deformity related to previously demonstrated comminuted intra-articular fractures involving subtalar and calcaneal cuboid joints. There is increased sclerosis along the fracture lines characteristic of bridging callus. Redemonstration of lucent gap in the calcaneal tibial surface at the posterior subtalar joint. As previously noted, displaced ossific fragment immediately lateral calcaneus appear to be fusing to other fragments of the calcaneus. Persistent flattening of the calcaneus and irregular joint surface depression at the subtalar joint. XR/XR calcaneus LT min 2V IMPRESSION: Continued healing of comminuted, displaced intra-articular fracture of the calcaneus with interval increased bridging callus formation.
== END 2024-03-05 10:44 | disposition home or self-care (01) ==
LOC: HO.HOSX 10:43
PROVIDERS: Visit Provider Physician Assistant
DX: S92.012D Displaced fracture of body of left calcaneus, subsequent encounter for fracture with routine healing (principal)
CPT/HCPCS: 73650; 99212

== ENCOUNTER 2024-03-05 12:33 | Outpatient (AMB) | payer OTHER, SELFPAY ==
--- NOTE | 2024-03-05 12:40 | MHC.OFFVIS ---
Intake Visit Reasons: O/V Calcaneus fx, left-DOI 10/06/23-follow up Intake Note: Gayatri 48 year old male who presents today for a follow up of left calcaneus fracture, DOI 10/06/23. Patient reports he is doing well, states occasional pain in his heel. He has complete PT. Allergies No Known Allergies Allergy (Unknown, Verified 03/05/24 12:46) NOT APPLICABLE HPI HPI O/V Calcaneus fx, left-DOI 10/06/23-follow up: Details: 48-year-old male who returns to the office today for a follow-up of left foot fracture, 10/06/23. He states he has improvement in his pain however he continues to have occasional pain and discomfort in his heel. He has completed physical therapy as instructed. He has no other concerns today. [facility] Medical History No known health problems Social History Patient Tobacco Use Status: Current everyday Tobacco user Cigarettes Per Day: 5 Substance Use Type: Marijuana Review of Systems Const All systems reviewed & are unremarkable except as noted in HPI and below Physical Exam Const General: cooperative and no acute distress Orientation/consciousness: patient oriented x3 Resp Effort & Inspection: normal respiratory effort and able to speak in complete sentences Cardio Peripheral pulses: Peripheral pulses 2+ throughout Skin General skin exam: no rashes or lesions noted Neuro General: patient oriented x3 Extrem Other: Left foot/ankle: Skin intact. No tenderness along the calcaneus. Able to move all digits.Calf supple, non tender. Sensation intact. Pedal pulse intact. Results Reviewed Results Reviewed: I personally reviewed relevant radiographs. Comminuted and healing calcaneus fracture Assessment & Plan Assessment & Plan (1) Calcaneus fracture: Code(s): S92.009A - Unspecified fracture of unspecified calcaneus, initial encounter for closed fracture Category: Medical Qualifiers: Encounter type: subsequent encounter Calcaneus location: body Fracture type: closed Laterality: left Fracture healing: with routine healing Plan He is going to return to work full duty on March 06 without restrictions. He will continue home exercises program with physical therapy. If symptoms persist or worsens, patient will contact the office, otherwise follow-up as needed. Orders: Orders XR calcaneus LT min 2V Today S92.002A - Unspecified fracture of left calcaneus, initial encounter for closed fracture Patient Instructions: Scribed for Johanna Shepherd PA-C, by Rolando Merrill chief medical physicist, on 02/22/2024 at 12:45 PM EST. Calvin, Johanna Shepherd PA-C, have personally reviewed and agree with the information entered by the scribe. Coding Level of Care Code Est Pt Level 3 (61657) Diagnoses Calcaneus fracture S92.009A Encounter type: subsequent encounter Calcaneus location: body Fracture type: closed Laterality: left Fracture healing: with routine healing
== END 2024-03-05 12:55 | disposition home or self-care (01) ==
PROVIDERS: Visit Provider Physician Assistant
DX: S92.002A Unspecified fracture of left calcaneus, initial encounter for closed fracture (principal)
CPT/HCPCS: 99213